=== PATIENT | male | born 1960 | race Caucasian/White ===

== ENCOUNTER 2021-07-11 03:18 | Day surgery (SDC) | payer OTHER, SELFPAY ==
[2021-07-03 13:14] VITALS: BMI 29.2
--- NOTE | 2021-07-10 14:14 | P.HP_ITS ---
History of Present Illness History of Present Illness Consent: Risks, benefits, and alternatives have been discussed and questions answered. Patient agrees to proceed with procedure. Chief complaint: GERD, dysphagia, neoplasm screening Narrative: Flako Branch is a 60 year old male who presents for c/o of acid reflux for many years. Reports heartburn sensation and reflux daily that is worse at night when laying down in bed with occasional vomiting. He has inte rmittent dysphagia to solids. Dysphagia is located in epigastric region. Reports food gets stuck for approximately 1-2 minutes then eventually passes. He was started on pantoprazole 2-3 months ago with improvement of symptoms but still with breakthrough symptoms at least once a week. He denies any Nsaid use. He is a smoker. No family history of gastric or esophageal cancers. He reports 2-3 loose stools daily which is normal for him but states since starting the pantoprazole he has approximately 4 loose stools daily. He denies any abdominal pain, bloody stools or weight loss. No family hx of CRC/IBD. He has not had a screening colonoscopy yet Review of Systems Review of Systems: All systems reviewed & are unremarkable except as noted in HPI and below PMFSH Past Medical History Medical History (Updated 07/11/21 @ 10:29 by Gage Trent MD) Diarrhea Dysphagia Social History Social History Smoking status: Current some day smoker Tobacco type: cigarettes Additional smoking assessment comments: 1 pack per week Living arrangements: with family Spiritual care concerns: No Meds Home Medications and Allergies Home Medications Medication Instructions Recorded Confirmed Type pantoprazole 40 mg tablet,delayed 40 mg PO QAM 06/19/21 07/11/21 History release Allergies Allergy/AdvReac Type Severity Reaction Status Date / Time No Known Allergies Allergy Verified 07/11/21 10:16 Exam Const: General: alert Orientation/consciousness: patient oriented x3 Resp: Auscultation: clear to auscultation bilaterally Cardio: Rhythm: regular rhythm GI: GI Palp: Yes Soft to palpation and No Tenderness to palpation present (GI) Neuro: General: patient oriented x3 Assessment and Plan Assessment and plan (1) Dysphagia: Code(s): R13.10 - Dysphagia, unspecified Status: Acute Assessment and Plan: EGD with possible biopsy or dilatation or cautery. (2) Colon cancer screening: Code(s): Z12.11 - Encounter for screening for malignant neoplasm of colon Status: Acute Assessment and Plan: Colonoscopy with possible biopsy or polypectomy or cautery or injection of substances.
[2021-07-11 10:17] VITALS: BP 108/68; PULSE 70; RESP 17; TEMP 37.1; O2SAT 99; BMI 28.5
[2021-07-11] MEDS: LACTATED RINGERS 1,000 ML 150 ML IV CONT (10:19)
--- NOTE | 2021-07-11 10:33 | WPDANESEPPF ---
Anes - Initial Pre Proc Eval Procedure: Operation Date: 07/11/21 11:15 Proposed Procedures p Esophagogastroduodenoscopy & Screening Colonoscopy - Gage Trent MD Date/Time: 07/11/21 10:33 Surgeon: Gage Trent MD Pre Op Diagnosis: GERD, dysphagia, neoplasm screening Patient Data Age: 60 Gender: M Height: 1.75 m Weight: 87.6 kg Last Vital Signs Temp 37.1 C 07/11/21 10:17 Pulse 70 07/11/21 10:17 Resp 17 07/11/21 10:17 BP 108/68 07/11/21 10:17 Pulse Ox 99 07/11/21 10:17 Allergies Allergy/AdvReac Type Severity Reaction Status Date / Time No Known Allergies Allergy Verified 07/11/21 10:16 Home Medications Medication Instructions Recorded Confirmed Type pantoprazole 40 mg tablet,delayed 40 mg PO QAM 06/19/21 07/11/21 History release Patient hx anesthesia problems: none Family hx anesthesia problems: none Results Review: All pre-operative results and documents have been reviewed as part of the pre-operative evaluation. PMF Past Medical History Medical History Diarrhea Dysphagia Overweight Smoker Social History Social History Smoking status: Current some day smoker Tobacco type: cigarettes Additional smoking assessment comments: 1 pack per week Living arrangements: with family Spiritual care concerns: No Anes - Eval Final PreProcedure Day of Procedure 07/11/21 10:33 Patient weight: overweight Heart: regular rate and rhythm Lungs: clear to auscultation Airway: Mallampati scale class II Neurological: alert and oriented Last oral intake: >/= 8 hours ASA classification: III Emergent: no Anesthetic plan: proceed Anesthesia type and monitoring: general GIVS and standard monitoring Results Review: All pre-operative results and documents have been reviewed as part of the pre-operative evaluation. Informed Consent: The patient's anesthetic plan and its attendant risks and benefits were discussed with the patient/family/POA. Questions were solicited and answers provided to the satisfaction of the patient/family/POA.
[2021-07-11] MEDS: BENZOCAINE (*SP) 60 ML SPRAY CAN (HURRICAINE) 1 SPRAY MUCOUS MEM (11:34)
--- NOTE | 2021-07-11 11:49 | SUR.OPER ---
EGD END: 1142 COLONOSCOPY START: 1145
[2021-07-11 12:21] VITALS: BP 78/43; PULSE 65; RESP 19; O2SAT 94
[2021-07-11 12:31] VITALS: BP 117/63; PULSE 55; RESP 22; O2SAT 98
[2021-07-11 12:41] VITALS: BP 125/65; PULSE 52; RESP 17; O2SAT 100
== END 2021-07-11 13:02 | disposition home or self-care (01) ==
PROVIDERS: Visit Provider Internal Medicine Gastroenterology
PROC: 0DJ08ZZ Inspection of Upper Intestinal Tract, Via Natural or Artificial Opening Endoscopic (ICD-10-PCS; CPT 43235; principal; 2021-07-11 11:15)
DX: Z12.11 Encounter for screening for malignant neoplasm of colon (principal); R13.19 Other dysphagia; D12.0 Benign neoplasm of cecum; D12.4 Benign neoplasm of descending colon; D12.5 Benign neoplasm of sigmoid colon; K62.1 Rectal polyp; K63.5 Polyp of colon; K22.2 Esophageal obstruction; F17.210 Nicotine dependence, cigarettes, uncomplicated; K20.80 Other esophagitis without bleeding; K64.8 Other hemorrhoids
CPT/HCPCS: 45385; 45381; 43249; 43239; 88305; C1726; J2704; J7120